=== PATIENT | female | born 1970 | race Two or more races ===

== ENCOUNTER 2023-03-13 08:31 | Outpatient (OUT) | payer BC, SELFPAY ==
--- NOTE | 2023-03-13 08:32 | VEIN_ITS ---
Patient Name: DAVID SHEPPARD MR#: [id number] : 1970 Exam Date: 03/13/2023 Ordering Doctor: DHARMESH ARNETT RADIOLOGY REPORT PROCEDURE: VC EXT VENOUS REFLUX KAI LMTD COMPARISON: None. INDICATIONS: I83.813 Bilateral painful varicose veins TECHNIQUE: Duplex imaging of the lower extremity to assess the deep and superficial venous system for the presence of deep or superficial venous incompetence and to document the location and severity of disease. The study includes evaluation of the great saphenous vein (GSV), anterior accessory saphenous vein (AASV) and small saphenous vein (SSV). Patient scanned in reverse Trendelenburg and standing. FINDINGS: RIGHT LOWER EXTREMITY: Saphenofemoral Junction Reflux: Yes 8.0mm 2.1 sec GSV: Diam (mm) Reflux/ Time (sec) Proximal Thigh 5.7 Yes 1.3 Mid Thigh 4.4 Yes 1.2 Distal Thigh 3.9 Yes 2.1 Prox Calf 3.6 Yes 0.9 Mid Calf 2.7 No Saphenopopliteal Junction Reflux: 4.1mm Yes 1.3 SSV: Proximal Calf 2.6 Yes 1.2 Mid Calf 3.6 No AASV: Proximal Thigh 8.3 Yes 1.7 Mid Thigh 3.9 Yes 1.1 Distal Thigh Thrombi: No acute or chronic thrombus visualized Compressibility: Normal Flow: Normal Clinical Documentation Spec: Mid/med calf 3.3mm with 0.8s reflux. Prox/med calf 3.0mm with 0.6s reflux. Tech Note: Incompetent GSV and AASV. Patent varicose vein medial knee 2.7mm with 0.5s reflux. Patent varicose vein mid/medial thigh 3.8mm with 0.8s reflux. LEFT LOWER EXTREMITY: Saphenofemoral Junction Reflux: Yes 7.1 mm 1.8 sec GSV: Diam (mm) Reflux/Time (sec) Proximal Thigh 6.0 Yes 2.0 Mid Thigh 4.9 Yes 0.7 Distal Thigh 5.1 Yes 1.3 Prox Calf 5.1 Yes 1.5 Mid Calf 2.8 Yes 0.4 Saphenopopliteal Junction Relux: 2.8 mm No SSV: Proximal Calf 3.2 No Mid Calf 2.6 No AASV: Not present Thrombi: No acute or chronic thrombus visualized Compressibility: Normal Flow: Normal Clinical Documentation Spec: Mid/med calf 5.1mm with 1.4s reflux. Tech Note: Incompetent prox/med calf 5.4mm with 1.5s reflux. Prox/ant calf 4.2mm with 0.8s reflux . Patent varicose vein 4.4mm with 0s reflux. Patent varicose vein mid/ant thigh 3.0mm with 1.0s reflux. CONCLUSION: 1. Moderate venous insufficiency , dilatation and saphenofemoral junction reflux bilateral great saphenous veins and right anterior accessory saphenous vein 2. Bilateral incompetent perforating veins 3. Bilateral incompetent varicose veins Dictated by: Praneeth Terrell MD on 03/13/2023 at 09:40 Approved by: Praneeth Terrell MD on 03/13/2023 at 09:42
--- NOTE | 2023-03-13 08:32 | VEIN_ITS ---
Patient Name: DAVID SHEPPARD MR#: [id number] : 1970 Exam Date: 03/13/2023 Ordering Doctor: DHARMESH ARNETT RADIOLOGY REPORT PROCEDURE: [facility] - OFFICE VISIT INITIAL COMPARISON: None. PROGRESS NOTES: 52-year-old female who presents with a 2-3 year history of lower extremity pain swelling and varicose veins. The patient describes the pain as a 10 on a scale of 1-10. The patient describes the pain as aching burning and heaviness. 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 The patient's symptoms are relieved by rest, leg elevation and over the counter ibuprofen. The patient has not worn compression stockings. The patient does exercise 5-6 times per day and walks for several miles every day. The patient does not speak [place]ian and her electrotherapist was her son. The patient denies any signs and symptoms to suggest arterial ischemia. The patient describes a family history type 2 diabetes. . The patient has never smoked. No illicit drug use. No alcohol use. The patient's past medical history is significant for type 2 diabetes which she remains on metformin and does and PICC for. The patient takes an are tablet and aspirin daily. Past surgical history significant for tubal ligation, appendectomy and cholecystectomy. No history of deep venous thrombus or pulmonary embolus. See separate history and physical for medication list. No prior treatment for varicose or spider veins. No prior use of compression stockings. Nursing notes were reviewed After history and physical exam I discussed at length the pathophysiology of venous hypertension and possible treatments, therapies and strategies available. We discussed at length the importance of elevating the lower extremities above the level of the heart, increased physical activity and compression stocking use. I discussed intravenous laser ablation, micro foam chemical ablation and injection sclerotherapy. Risks benefits and alternatives were explained. The patient's questions were answered. Ultrasound venous reflux study performed the same day was discussed at length with the patient. The report demonstrates moderate bilateral great saphenous and right anterior accessory saphenous vein venous insufficiency with saphenopopliteal junction reflux. Bilateral incompetent perforating veins. Bilateral incompetent varicose veins PHYSICAL EXAM: The right leg demonstrates mild scattered varicose, moderate scattered reticular and spider veins. Mild hemosiderin staining. Mild subcutaneous edema. No active ulceration. The left leg demonstrates moderate scattered varicose, moderate scattered reticular and spider veins. Mild hemosiderin staining. Mild subcutaneous edema. No active ulceration. Both thighs, legs and feet were symmetrically warm to the touch. Good posterior tibial and dorsalis pedis pulses were present bilaterally. VEIN/VC Facility EST Comprehensive IMPRESSION: 1. Bilateral great saphenous vein, right anterior accessory saphenous vein and incompetent perforating vein venous insufficiency 2. Bilateral incompetent lower extremity varicose veins 3. Mild bilateral lower extremity subcutaneous edema 4. No definite flow significant arterial disease 5. CEAP: C4a, Ep, Asp, Pr PLAN: 1. Begin use of bilateral 20-30 mm thigh-high compression stockings 2. Elevated legs and increased physical activity for symptomatic relief 3. Follow-up in 3 months Nurse notes, history and physical were reviewed and confirmed, see attached forms. The nurse was present throughout the physical exam and consultation Dictated by: Praneeth Terrell MD on 03/13/2023 at 14:05 Approved by: Praneeth Terrell MD on 03/13/2023 at 14:23
== END 2023-03-13 08:32 | disposition home or self-care (01) ==
DX: I83.813 Varicose veins of bilateral lower extremities with pain (principal)
CPT/HCPCS: 93970; G0463

== ENCOUNTER 2023-06-24 09:51 | Outpatient (OUT) | payer BC, SELFPAY ==
--- NOTE | 2023-06-24 09:53 | VEIN_ITS ---
Patient Name: DAVID SHEPPARD MR#: [id number] : 1970 Exam Date: 06/24/2023 Ordering Doctor: DR YUNIOR MONROY M.D. RADIOLOGY REPORT PROCEDURE: [facility] FACILITY EST LMTD VEIN CENTER - OFFICE VISIT FOLLOW UP COMPARISON: None. PROGRESS NOTES: The patient reports continued chronic symptoms but there has been improvement in leg symptoms while wearing compression stockings. Persistent varicosities of the legs. Review of patient's original ultrasound evaluation was performed. No significant change. The patient expressed a desire to proceed with treatment of incompetent varicosities. The patient was informed that treatment was a process and would require several procedures/sessions. VEIN/VC Facility EST LMTD IMPRESSION: 1. Persistent bilateral lower extremity dilated and incompetent veins and lower extremity symptoms which have shown some improvement while wearing compression stockings daily for past 3 months. PLAN: 1. Endovenous laser ablation of bilateral great saphenous veins, right anterior accessory saphenous vein, and left lower extremity incompetent perforating vein(s). 2. Bilateral lower extremity microfoam chemical ablation of incompetent branch saphenous varicosities. Nurse notes, history and physical were reviewed and confirmed, see attached forms. The nurse was present throughout the physical exam and consultation Dictated by: Hong Kenney M.D. on 06/24/2023 at 11:42 Approved by: Hong Kenney M.D. on 06/24/2023 at 11:49
--- OUTSIDE RECORDS SUMMARY | 2023-06-24 09:56 | XMS_ITS | CCD ---
Author Organization [facility] Care Team Providers Care Criminal Intelligence Analyst Name Role Phone REQUEST, DR NONE LISTED Primary Care UnavailELIAS Johnston Admitting Unavailable ELIAS WARE Attending Unavailable EDDI, DR HONG Stone Consulting Unavailable ELIAS WARE Consulting Unavailable Problems Problem Classification Problem Date Documented Da te Episodic/Chronic Other screening for suspected conditions (not mental disorders or infectious disease) (4 sources) Encounter for screening mammogram for malignant neoplasm of breast; Translations: [ENC SCR MAMMO MALIG NEOPLASM BREAST] Onset: 02-21-2021 Episodic Results Test Name Value Interpretation Reference Range Facil ity MG MAMM SCREEN 3D KAI CADon 02-21-2021 MG MAMM SCREEN 3D KAI CAD Patient: DAVID SHEPPARD. Exam Date: 02/21/2021 : 1970 Gender:F Ordering : DR. ELIAS WARE . Admission #: [id number] Family : Order #: [id number] CLICK HERE TO VIEW EXAM RADIOLOGY REPORT PROCEDURE: MAMMOGRAM SCREENING 3D BILATERAL CAD COMPARISON: MG MAMM SCREEN KAI W CAD, 02/09/2020. MG MAMM SCREEN KAI W CAD, 12/16/2018. INDICATIONS: Screening mammography Calculator Name NCI Breast Cancer Risk Assessment Tool 5 Year Breast Cancer Risk Not Reported. Lifetime Breast Cancer Risk Not Reported. Personal Breast Cancer No Personal Ovarian Cancer No Treatments None Family Cancers None LOCATION: [facility] BREAST COMPOSITION: Heterogeneously dense,which may obscure small masses. FINDINGS: DIAGNOSTIC CATEGORY 1--NEGATIVE ASSESSMENT. RIGHT BREAST: No significant suspicious finding. No significant change has occurred. LEFT BREAST: No significant suspicious finding. No significant change has occurred. RECOMMENDATIONS: ROUTINE MAMMOGRAM AND CLINICAL EVALUATION IN 12 MONTHS. PLEASE NOTE: A NORMAL MAMMOGRAM DOES NOT EXCLUDE THE POSSIBILITY OF BREAST CANCER. A CLINICALLY SUSPICIOUS PALPABLE LUMP SHOULD BE BIOPSIED. Dictated by: Hong Kenney M.D. on 02/22/2021 at 10:50 Approved by: Hong Kenney M.D. on 02/22/2021 at 11:00 Normal [facility] Encounters Encounter Date Encounter Type Care Provider Facility Start: 02-21-2021 End: 02-22-[address] NONE LISTED REQUEST Facility: Payers Date Payer Category Payer Unknown [id number] 1958 Unknown [id number] Summary Purpose Family History No Family History Records Found Advance Directives No Advanced Directives Records Found Additional Source Comments INFORMATION SOURCE (unrecogn ized section and content) DATE CREATED AUTHOR 03/10/2021 [facility] FOR RECORDS PERTAINING TO PATIENTS WHO ARE OR HAVE BEEN ENROLLED IN A CHEMICAL DEPENDENCY/SUBSTANCEABUSE PROGRAM, SOME INFORMATION MAY BE OMITTED. This clinical summary was aggregated from multiple sources. Caution should be exercised in using it in the provision of clinical care. This summary normalizes information from multiple sources, and as a consequence, information in this document may materially change the coding, format and clinical context of patient data. In addition, data may be omitted in some cases. CLINICAL DECISIONS SHOULD BE BASED ON THE PRIMARY CLINICAL RECORDS. [facility] [employer] [facility]. provides no warranty or guarantee of the accuracy or completeness of information in this document.
== END 2023-06-24 09:52 | disposition home or self-care (01) ==
LOC: VC 09:51
PROVIDERS: Visit Provider Radiology Diagnostic Radiology
DX: I83.813 Varicose veins of bilateral lower extremities with pain (principal)
CPT/HCPCS: G0463